=== PATIENT | male | born 1985 | race Two or more races ===

== ENCOUNTER 2024-04-22 11:22 | Emergency (ER) | payer OTHER ==
[~2024-04-22] VITALS: Ht 180.3 cm; Wt 169.1 kg
[2024-04-22 12:14] VITALS: BP 133/86; PULSE 89; RESP 20; TEMP 97.6; O2SAT 94
[2024-04-22] MEDS: KETOROLAC TROMETH 60MG/2ML VIAL IM ONE (13:01)
[2024-04-22] MEDS ORDERED: NAP500T PO (13:18)
[2024-04-22] MEDS ORDERED: LIDO5DIS21 TOP (13:18)
[2024-04-22] MEDS ORDERED: CYCL-837 PO (13:18)
== END 2024-04-22 13:33 | disposition home or self-care (01) ==
LOC: ER 11:28 → EEVIPCON 11:28 → ER 13:33
DX: M54.2 Cervicalgia (principal); M54.6 Pain in thoracic spine; Z88.6 Allergy status to analgesic agent; Z79.1 Long term (current) use of non-steroidal anti-inflammatories (NSAID); V89.2XXA Person injured in unspecified motor-vehicle accident, traffic, initial encounter; Y93.89 Activity, other specified; Y92.89 Other specified places as the place of occurrence of the external cause; Y99.8 Other external cause status
CPT/HCPCS: 72040; 72070; 96372; 99284; J1885